=== PATIENT | female | born 1960 | race Caucasian/White ===

== ENCOUNTER 2020-10-05 10:40 | Outpatient (CLI) | payer BC ==
[2020-10-05 14:47] LABS: Cardiac Risk 5.4 (Less than 4.5)
== END 2020-10-05 10:41 | disposition home or self-care (01) ==
LOC: SCSLAB 10:40
PROVIDERS: ATTEND Family Medicine
DX: E78.5 Hyperlipidemia, unspecified (principal)
CPT/HCPCS: 36415; 80061

== ENCOUNTER 2021-12-27 14:04 | Outpatient (CLI) | payer BC ==
[2021-12-27 15:39] LABS: #Eosinphils 0.2 10x3/uL (0.0-0.5); #Monocytes 0.5 10x3/uL (0.0-1.1); #Neutrophils 2.8 10x3/uL (1.5-8.4); %Basophils 0.7 % (0.0-2.0); %Lymphocytes 40.3 % (18.0-47.0); %Monocytes 7.8 % (0.0-10.0); Hemoglobin 11.7 g/dL (12.0-15.5); Mean Corpuscular Hemoglobin 29.5 pg (27.0-33.0); Mean Corpuscular Volume 86.6 fl (81.6-98.3); Mean Platelet Volume 10.8 fl (7.4-10.4); Platelet Count 193 10x3/uL (150-450); RBC Distribution Width 13.5 % (11.5-14.5); Red Blood Cell (RBC) Count 3.97 10x6/uL (3.90-5.03)
[2021-12-27 15:47] LABS: Anion Gap 12 mmol/L (10-20); BUN (Urea Nitrogen) 12 mg/dL (9.8-20.1); Calc. Creatinine Clearance 0 mL/min (70-130); Calcium 9.3 mg/dL (7.8-10.44); Carbon Dioxide 28 mmol/L (22-29); Chloride 104 mmol/L (98-107); Estimated GFR 70; Glucose 117 mg/dL (70-105); Potassium 4.5 mmol/L (3.5-5.1); Sodium 139 mmol/L (136-145)
== END 2021-12-27 14:05 | disposition home or self-care (01) ==
LOC: LABBT 14:04
PROVIDERS: ATTEND Specialist
DX: Z01.812 Encounter for preprocedural laboratory examination (principal); C50.911 Malignant neoplasm of unspecified site of right female breast
CPT/HCPCS: 80048; 85025

== ENCOUNTER 2021-12-28 09:17 | Day surgery (SDC) | payer BC ==
[2021-12-27 10:04] VITALS: BMI 23.2
[2021-12-28] MEDS ORDERED: Acetaminophen 500 MG TAB ONE (11:25)
[2021-12-28] MEDS ORDERED: Ketorolac Tromethamine 30 MG/ML VIAL ONE (11:25)
[2021-12-28] MEDS ORDERED: Midazolam HCl 2 mg/2 ml Vial ONE (11:56)
[2021-12-28] MEDS ORDERED: fentaNYL PF 100 MCG/2 ML SYRINGE ONE ×2 (11:56→14:18)
[2021-12-28] MEDS ORDERED: Isosulfan Blue 50 MG/5 ML VIAL ONE (12:03)
[2021-12-28] MEDS ORDERED: Lidocaine 1% (PF) 30 ML VIAL ONE (12:03)
[2021-12-28] MEDS ORDERED: Bupivacaine/Epinephrine 0.25% 30 ML VIAL ONE (12:03)
[2021-12-28] MEDS ORDERED: CEFAZOLIN 2 GM VIAL ONE (12:15)
[2021-12-28] MEDS ORDERED: Sodium Chloride 0.9% 100 ML ONE (12:16)
[2021-12-28] MEDS ORDERED: PROPOFOL 200 MG/20 ML VIAL ONE (12:24)
[2021-12-28] MEDS ORDERED: PHENYLEPHRINE-NS 100 MCG/ML 10 ML SYRINGE ONE (12:24)
[2021-12-28] MEDS ORDERED: Ondansetron PF 4 MG/2 ML Vial ONE (12:24)
[2021-12-28] MEDS ORDERED: Dexamethasone 20 MG/5 ML VIAL ONE (12:24)
[2021-12-28] MEDS ORDERED: ePHEDrine 50 MG/ML VIAL ONE (12:24)
== END 2021-12-28 16:45 | disposition home or self-care (01) ==
LOC: NM 09:17
PROVIDERS: ATTEND Specialist
PROC: 0HBT0ZZ Excision of Right Breast, Open Approach (ICD-10-PCS; principal; 2021-12-28)
PROC: 07B50ZX Excision of Right Axillary Lymphatic, Open Approach, Diagnostic (ICD-10-PCS; principal; 2021-12-28)
DX: C50.511 Malignant neoplasm of lower-outer quadrant of right female breast (principal); N60.91 Unspecified benign mammary dysplasia of right breast; N60.81 Other benign mammary dysplasias of right breast; N60.21 Fibroadenosis of right breast; Z17.0 Estrogen receptor positive status [ER+]; Z79.899 Other long term (current) drug therapy; Z88.7 Allergy status to serum and vaccine
CPT/HCPCS: 76098; 78195; 88307; 88342; A9541; C1713; J1100; J1885; J2001; J2250; J2405; J2704; J3490; Q9968